=== PATIENT | male | born 1965 | race Caucasian/White ===

== ENCOUNTER 2017-12-10 18:51 | Emergency (ER) | payer OTHER ==
[2017-12-10] MEDS ORDERED: ALTEPLASE 100 MG/100 ML VIAL IV ONE ×2 (19:04→19:14)
[2017-12-10 19:09] LABS: PLATELET COUNT 208 10^3/uL (150-400)
--- NOTE | 2017-12-10 19:10 | EDPHY ---
H & P Time Seen by Provider: 12/10/17 18:56 HPI/ROS: CHIEF COMPLAINT: Stroke activation HISTORY OF PRESENT ILLNESS: Patient is a 50-year-old male who presents emergency department via EMS as a stroke activation. Per report patient was at home with his sister. At 6:35 a.m. she heard a fall while she was in the bathroom. She subsequently found the patient on the floor. She reports that she was able to crawl up into his chair. He initially spoke and seem to be moving normally. However, over the next 6 min he had decrease in mental status and also a decrease in "lucidity" per his sister. Patient had normal blood glucose in route. He was noted to be hypertensive with a reported systolic blood pressure of 220 and a low heart rate of 40. The patient is unable to answer questions. REVIEW OF SYSTEMS: Unable to obtain review systems due to the patient's mental status. Past Medical/Surgical History: Patient's sister arrived and was able to give past medical history. She states he has a history of hypertension and high cholesterol. Past surgical history: His sister denies Social history: Patient does not smoke or use alcohol. Family history: History of CVA Physical Exam: Vitals noted GENERAL: Mild acute distress, alert. HEENT: Eyes normal to inspection, normal pharynx, no signs of dehydration. NECK: Normal, supple. RESPIRATORY: Clear to auscultation bilaterally, no rales, rhonchi or wheezing. CVS: Regular rate and rhythm, no rubs, murmurs, or gallops. ABDOMEN: Soft, nontender, nondistended, no organomegaly. BACK: Normal to inspection, no CVA tenderness. SKIN: Normal color, no rash, warm, dry. No pallor. EXTREMITIES: No pedal edema, no calf tenderness, no Homans sign or cords, no joint swelling. NEURO/PSYCH: Alert. The patient is unable to answer orientation questions. He states words but they are inappropriate. He is unable to give his name. Patient seems mildly anxious. He moves all extremities intermittently but will not move his extremities on command. No obvious cranial nerve deficit. Constitutional: Initial Vital Signs Temperature (C) 36.3 C 12/10/17 18:51 Heart Rate 64 12/10/17 18:51 Respiratory Rate 22 H 12/10/17 18:51 Blood Pressure 120/62 12/10/17 18:51 O2 Sat (%) 97 12/10/17 18:51 O2 Delivery Mode Non-Rebreather Mask O2 (L/minute) 15 Allergies/Adverse Reactions: No Known Allergies Allergy (Unverified 12/10/17 19:19) Home Medications: Medication Instructions Recorded Amlodipine Besylate 12/10/17 Atorvastatin Calcium 12/10/17 Lisinopril 12/10/17 Metformin HCl 12/10/17 Terazosin HCl 12/10/17 Medical Decision Making - Diagnostics Imaging Results: Imaging Impressions Head CT 12/10/17 18:55 Impression: Normal brain. No acute intracranial hemorrhage or evidence of acute cortical ischemia. Findings discussed with Emergency Department physician, Pennie Orosco M.D. , on December 10, 2017 at 1904. ED Course/Re-evaluation: Patient was a stroke activation. In the emergency department I met the patient on arrival. I took report from the welt stitch cleaner. I recommended patient go immediately to CT imaging. I discussed the case and findings with the patient's sister arrived in the emergency department. Further history was taken. The time of onset was confirmed at 6:35 p.m. I reviewed i-STAT 1.2. After my evaluation I contacted [facility] at 6:50 p.m. Repeat blood pressure was 120/62. Dr. Tapia evaluated the patient with the stroke camera interface. 19 13: I again discussed the case with Dr. Tapia from [facility]. He recommended the patient receive tPA. I discussed this with the patient and his sister was present. Of note, I had not yet completed NIHSS independently. Sinus rhythm at 71. Normal axis. Normal intervals. Mild ST depression V1-V2. 1916: TPA treatment was started. NCME was placed on standby. I called CT to inform them that we are ordering a CT angio of the head neck. I reviewed the patient's laboratory studies. Creatinine was 1.1 on blood sent to the lab. His chemistry panel is unremarkable. Coags were normal. Patient' s CBC is notable for mildly elevated white count of 11. I accompanied the patient to CT imaging. The patient received fentanyl 100 mcg IV in the CT scanner to help keep him still for imaging. It was noted when I was standing at the monitor the patient had a type a dissection. I went contacted Dr. Orozco to come into the CT imaging room to read the CT real time. He reported that the patient has a type a dissection of the aorta. This extends into his subclavian vessels bilaterally as well as into his left common carotid and left internal carotid. There is decreased flow in the distal ICA. While in imaging I ordered CT angiogram of the chest. Dr. Orozco was present. I discussed the case with on-call cardiothoracic surgery, Dr. Hernandes. He was currently scrubbed in the case that [facility] and I spoke to his nurse. I explained the situation, patient's presentation, my discussion with Dr. Tapia and the potential need for thrombectomy depending on the imaging studies. He potentially needed cardiothoracic surgery as well as thrombectomy by Neurology. The nurse stated Dr. Hernandes could be to our emergency department 1 hr. I discussed the possibility of transferring the patient to [facility]. She also stated that she was unsure if they could accept the patient due to the fact that they were currently described in in a type a dissection. I discussed the case again with Dr. Tapia from Neurology. He wanted further information as to whether there was thrombus in the large vessels for possible thrombectomy. I subsequently discussed this with Dr. Orozco. He felt the patient had poor flow secondary to dissection rather than thrombus. I updated the family. I paged cardiothoracic surgery from [facility] upgraded to a "go" but we do not yet have an accepting or destination. 2010: I discussed case with Dr. Tapia. I discussed the CT findings. Dr. Orozco feels this is not the case that needs thrombectomy at this time. He felt the flow was secondary to dissection. I discussed my plan to contact [place] cardiothoracic surgeon as Dr. Ricketts's nurse stated he was scrubbed in and may not be able to accept a patient at this time. We discussed blood pressure management. We agreed that keeping his blood pressure around 100 systolic would be appropriate with both his dissection and his stroke symptoms. I discussed the case with Dr. Berg, cardiothoracic surgery from [place]. I discussed the patient's presentation. He accepted the patient. [facility] was notified at the bedside. I discussed the care plan with [facility]. I updated the family as to the patient's critical condition and his diagnoses. I answered all her questions. Differential Diagnosis: My differential includes but is not limited to ischemic CVA, hemorrhagic CVA, dissection, aneurysm, electrolyte abnormality, sugar abnormality, encephalopathy Critical Care Time: Patient required 60 min of critical care time. This was exclusive of any unbundled procedure. This was due the patient's significant findings on initial evaluation, need for tPA, time spent at the bedside, consultation was Stroke Neurology. - Data Points Laboratory Results: Laboratory Results 12/10/17 19:00 12/10/17 19:00 12/10/17 12/10/17 12/10/17 19:33 19:15 19:00 WBC RBC Hgb POC Hgb Hct POC Hct MCV MCH MCHC RDW Plt Count MPV Neut % (Auto) Lymph % (Auto) Alfalfa % (Auto) Eos % (Auto) Baso % (Auto) Nucleat RBC Rel Count Absolute Neuts (auto) Absolute Lymphs (auto) Absolute Monos (auto) Absolute Eos (auto) Absolute Basos (auto) Absolute Nucleated RBC Immature Gran % Immature Gran # PT INR POC Sodium Sodium 143 mEq/L mEq/L (135-145) POC Potassium Potassium 4.0 mEq/L mEq/L (3.3-5.0) POC Chloride Chloride 107 mEq/L mEq/L (97-110) Carbon Dioxide 24 mEq/l mEq/l (22-31) Anion Gap 12 mEq/L mEq/L (8-16) POC BUN BUN 19 mg/dL mg/dL (7-23) Creatinine 1.1 mg/dL mg/dL (0.7-1.3) POC Creatinine Estimated GFR > 60 Glucose 88 mg/dL mg/dL (70-100) POC Glucose Calcium 9.4 mg/dL mg/dL (8.5-10.4) POC Troponin I 0.02 ng/mL ng/mL (0.00-0.08) Patient ABO/Rh Pending Antibody Screen Pending 12/10/17 12/10/17 12/10/17 19:00 19:00 18:59 WBC 11.69 10^3/uL H 10^3/uL (3.80-9.50) RBC 4.90 10^6/uL 10^6/uL (4.40-6.38) Hgb 14.5 g/dL g/dL (13.7-17.5) POC Hgb 14.6 gm/dL gm/dL (13.7-17.5) Hct 43.1 % % (40.0-51.0) POC Hct 43 % % (40-51) MCV 88.0 fL fL (81.5-99.8) MCH 29.6 pg pg (27.9-34.1) MCHC 33.6 g/dL g/dL (32.4-36.7) RDW 13.2 % % (11.5-15.2) Plt Count 208 10^3/uL 10^3/uL (150-400) MPV 11.2 fL fL (8.7-11.7) Neut % (Auto) 61.9 % % (39.3-74.2) Lymph % (Auto) 27.5 % % (15.0-45.0) Alfalfa % (Auto) 8.0 % % (4.5-13.0) Eos % (Auto) 1.8 % % (0.6-7.6) Baso % (Auto) 0.5 % % (0.3-1.7) Nucleat RBC Rel Count 0.0 % % (0.0-0.2) Absolute Neuts (auto) 7.23 10^3/uL H 10^3/uL (1.70-6.50) Absolute Lymphs (auto) 3.21 10^3/uL H 10^3/uL (1.00-3.00) Absolute Monos (auto) 0.94 10^3/uL H 10^3/uL (0.30-0.80) Absolute Eos (auto) 0.21 10^3/uL 10^3/uL (0.03-0.40) Absolute Basos (auto) 0.06 10^3/uL 10^3/uL (0.02-0.10) Absolute Nucleated RBC 0.00 10^3/uL 10^3/uL (0-0.01) Immature Gran % 0.3 % % (0.0-1.1) Immature Gran # 0.04 10^3/uL 10^3/uL (0.00-0.10) PT 13.4 SEC SEC (12.0-15.0) INR 1.00 (0.83-1.16) POC Sodium 144 mEq/L mEq/L (135-145) Sodium POC Potassium 3.6 mEq/L mEq/L (3.3-5.0) Potassium POC Chloride 107 mEq/L mEq/L (97-110) Chloride Carbon Dioxide Anion Gap POC BUN 18 mg/dL mg/dL (7-23) BUN Creatinine POC Creatinine 1.2 mg/dL mg/dL (0.7-1.3) Estimated GFR Glucose POC Glucose 91 mg/dL mg/dL (70-100) Calcium POC Troponin I Patient ABO/Rh Antibody Screen Medications Given: Discontinued Medications Alteplase, Recombinant (Activase) 9 mg IV ONCE ONE PRN Reason: Protocol Stop: 12/10/17 19:15 Last Admin: 12/10/17 19:16 Dose: 9 mg Alteplase, Recombinant (Activase) 81 mg IV ONCE ONE PRN Reason: Protocol Stop: 12/10/17 19:15 Last Admin: 12/10/17 19:17 Dose: 81 mg Point of Care Test Results: Chemistry 12/10/17 12/10/17 19:33 18:59 POC Sodium 144 mEq/L mEq/L (135-145) POC Potassium 3.6 mEq/L mEq/L (3.3-5.0) POC Chloride 107 mEq/L mEq/L (97-110) POC BUN 18 mg/dL mg/dL (7-23) POC Creatinine 1.2 mg/dL mg/dL (0.7-1.3) POC Glucose 91 mg/dL mg/dL (70-100) POC Troponin I 0.02 ng/mL ng/mL (0.00-0.08) ISTAT H&H 12/10/17 18:59 POC Hgb 14.6 gm/dL gm/dL (13.7-17.5) POC Hct 43 % % (40-51) Departure - Departure Disposition: Acute Care Hospital Not [facility] Clinical Impression: Acute ischemic stroke, Carotid dissection, bilateral, Aortic dissection distal to left subclavian Aortic dissection Qualifiers: Aortic location: thoracic aorta Qualified Code(s): I71.01 - Dissection of thoracic aorta Condition: Good Referrals: Patient,NotPresent [Primary Care Provider] - As per Instructions
[2017-12-10] MEDS ORDERED: NS 50 ML IV ONE (19:14)
[2017-12-10] MEDS ORDERED: ALTEPLASE 1 MG/ML SYR IV ONE (19:14)
[2017-12-10 19:17] LABS: PROTIME(PATIENT) 13.4 SEC (12.0-15.0)
[2017-12-10] MEDS ORDERED: IOPAMIDOL (ISOVUE 370) 100 ML BTL IV ONE ×2 (19:23→20:56)
[2017-12-10] MEDS ORDERED: LORazepam 2 MG/ML INJ ONE ×2 (19:26→19:44)
[2017-12-10] MEDS ORDERED: fentaNYL 100 MCG/2 ML INJ ONE (19:44)
[2017-12-10] MEDS ORDERED: TRANEXAMIC ACID 1,000 MG in NS 500 ML IV ONE (19:55)
[2017-12-10] MEDS ORDERED: TRANEXAMIC ACID 1,000 MG in NS 100 ML IV ONE (19:55)
[2017-12-10] MEDS ORDERED: fentaNYL 100 MCG/2 ML INJ IVP ONE (20:15)
[2017-12-10 20:19] VITALS: BP 93/46
[2017-12-10] MEDS: LORazepam 1 MG TAB PO ONE (20:41)
[2017-12-11] MEDS ORDERED: LORazepam 2 MG/ML INJ IVP ONE (18:33)
[2017-12-11] MEDS: LORazepam 1 MG TAB PO ONE (18:35)
== END 2017-12-10 20:26 | disposition short-term general hospital (02) ==
LOC: EDBD 18:51
DX: I63.9 Cerebral infarction, unspecified (principal); I10 Essential (primary) hypertension; E78.5 Hyperlipidemia, unspecified; I77.71 Dissection of carotid artery; I71.00 Dissection of unspecified site of aorta
CPT/HCPCS: 82435-PO; 82565-PO; 82947-PO; 84132-PO; 84295-PO; 84484-PO; 84520-PO; 85014-PO; 96365; J2060; J2997; J3010; Q9967